=== PATIENT | female | born 1945 | race Hispanic/Latino ===

== ENCOUNTER 2018-02-11 16:10 | Outpatient (CLI) | payer MEDICARE ==
--- NOTE | 2018-02-11 23:54 | XRay Report ---
FINAL REPORT PROCEDURE: XR SPINE CERVICAL 6+V TECHNIQUE: Cervical spine radiographs, minimum of four views, including AP, lateral, both oblique, and open-mouth odontoid projections. HISTORY: CERVICAL SPONDYLOSIS COMPARISON: No prior studies are available for comparison. FINDINGS: Prevertebral soft tissues: Normal. Alignment: Normal. Motion: Physiologic Vertebral body heights/Disk spaces: Normal. Fracture(s): None. Neural foramina: Normal. Facets: Normal. Bone mineralization: Normal. IMPRESSION: There is no evidence of an acute fracture or dislocation of the cervical spine.
== END 2018-02-11 16:11 | disposition home or self-care (01) ==
LOC: SPVIMAG 16:10
PROVIDERS: ATTEND Physical Medicine & Rehabilitation
DX: M47.812 Spondylosis without myelopathy or radiculopathy, cervical region (principal)
CPT/HCPCS: 72052